=== PATIENT | male | born 1975 | race Caucasian/White ===

== ENCOUNTER 2018-08-17 07:35 | Day surgery (SDC) | payer OTHER ==
[~2018-08-17] VITALS: Ht 177.8 cm; Wt 92.0 kg
[~2018-08-17 07:35] MED LIST: BUPIVACAINE/PF 0.5% ONE; EPINEPHRINE 1 MG/ML, 1ML ONE; IBUP-1223 PO; LIDOCAINE 1%, 20ML ONE; MULT-658 PO
[2018-08-17 07:50] VITALS: BP 119/79
[2018-08-17] MEDS ORDERED: LACTATED RINGERS 1,000 ML IV SCH (07:55)
[2018-08-17] MEDS ORDERED: FENTANYL PF 100 MCG/2ML ONE (08:13)
[2018-08-17] MEDS ORDERED: MIDAZOLAM 1 MG/ML, 2ML ONE (08:13)
[2018-08-17] MEDS ORDERED: ACETAMINOPHEN 500 MG TABLET PO ONE (08:30)
[2018-08-17] MEDS ORDERED: GABAPENTIN 300 MG CAPSULE PO ONE (08:30)
[2018-08-17] MEDS ORDERED: ONDANSETRON 2MG/ML, 2ML ONE (08:38)
[2018-08-17] MEDS ORDERED: CEFAZOLIN 1,000 MG ONE (08:38)
[2018-08-17] MEDS ORDERED: PROPOFOL 10 MG/ML, 20ML ONE (08:38)
[2018-08-17] MEDS ORDERED: DEXAMETHASONE 4 MG/ML, 1ML ONE (08:38)
[2018-08-17] MEDS ORDERED: MULTIVITAMIN 1 TABLET PO SCH (09:00)
[2018-08-17] MEDS ORDERED: IBUPROFEN 800 MG TABLET PO PRN (09:00)
[2018-08-17] MEDS ORDERED: KETOROLAC 30 MG/1 ML ONE (09:24)
[2018-08-17] MEDS ORDERED: MEPERIDINE/PF 25MG/0.5ML IVPush PRN (10:00)
[2018-08-17] MEDS ORDERED: OXYcodone 5 MG/5 ML ORAL.SOL UDC PO PRN (10:00)
[2018-08-17] MEDS ORDERED: ALBUTEROL/IPRATROPIUM 2.5MG/0.5MG, 3 ML NPPB PRN (10:00)
[2018-08-17] MEDS ORDERED: ONDANSETRON 2MG/ML, 2ML IV PRN (10:00)
[2018-08-17] MEDS ORDERED: MIDAZOLAM 1 MG/ML, 2ML IV PRN (10:00)
[2018-08-17] MEDS ORDERED: PROMETHAZINE 25 MG/ML, 1ML IV PRN (10:00)
[2018-08-17] MEDS ORDERED: FENTANYL PF 100 MCG/2ML IV PRN (10:00)
[2018-08-17] MEDS ORDERED: OXYcodone 5 MG/5 ML ORAL.SOL UDC ONE (10:27)
== END 2018-08-17 11:50 | disposition home or self-care (01) ==
LOC: OUT 07:35
PROVIDERS: ATTEND Orthopaedic Surgery
DX: S83.231A Complex tear of medial meniscus, current injury, right knee, initial encounter (principal); S83.271A Complex tear of lateral meniscus, current injury, right knee, initial encounter; S83.511A Sprain of anterior cruciate ligament of right knee, initial encounter; M94.261 Chondromalacia, right knee; Z72.89 Other problems related to lifestyle; X58.XXXA Exposure to other specified factors, initial encounter; Y93.89 Activity, other specified; Y92.89 Other specified places as the place of occurrence of the external cause; Y99.8 Other external cause status
CPT/HCPCS: 29880; J0171; J0690; J1100; J1885; J2250; J2405; J2704; J3010

== ENCOUNTER 2020-01-06 12:56 | Emergency (ER) | payer OTHER ==
[~2020-01-06] VITALS: Ht 177.8 cm; Wt 88.5 kg
[~2020-01-06 12:56] MED LIST changes: -BUPIVACAINE/PF 0.5% ONE; -EPINEPHRINE 1 MG/ML, 1ML ONE; -LIDOCAINE 1%, 20ML ONE
[2020-01-06 13:00] VITALS: BP 125/101
--- NOTE | 2020-01-06 13:27 | NUR ---
ICE PACK PROVIDED, CALL LIGHT WITHIN REACH.
== END 2020-01-06 14:08 | disposition home or self-care (01) ==
LOC: ED 13:10
DX: S86.012A Strain of left Achilles tendon, initial encounter (principal); X58.XXXA Exposure to other specified factors, initial encounter; Y93.89 Activity, other specified; Y92.89 Other specified places as the place of occurrence of the external cause; Y99.8 Other external cause status
CPT/HCPCS: 99283

== ENCOUNTER 2020-01-09 05:58 | Day surgery (SDC) | payer OTHER ==
[~2020-01-09] VITALS: Ht 177.8 cm; Wt 92.1 kg
[2020-01-09 06:23] VITALS: BP 128/82
[2020-01-09] MEDS ORDERED: FENTANYL PF 250 MCG/5ML ONE (06:31)
[2020-01-09] MEDS ORDERED: MIDAZOLAM 1 MG/ML, 2ML ONE (06:31)
[2020-01-09] MEDS ORDERED: NO MEDICATIONS (06:36)
[2020-01-09] MEDS ORDERED: PROPOFOL 10 MG/ML, 20ML ONE (06:49)
[2020-01-09] MEDS ORDERED: KETOROLAC 30 MG/1 ML ONE (06:49)
[2020-01-09] MEDS ORDERED: ROCURONIUM 10 MG/ML,10ML ONE (06:49)
[2020-01-09] MEDS ORDERED: ONDANSETRON 2MG/ML, 2ML ONE (06:49)
[2020-01-09] MEDS ORDERED: CEFAZOLIN 1,000 MG ONE (06:49)
[2020-01-09] MEDS ORDERED: DEXAMETHASONE 4 MG/ML, 1ML ONE (06:49)
[2020-01-09] MEDS ORDERED: SUGAMMADEX 200 MG/2 ML IVPush ONE (06:49)
[2020-01-09] MEDS ORDERED: MEPERIDINE/PF 25MG/0.5ML IVPush PRN (07:30)
[2020-01-09] MEDS ORDERED: PROMETHAZINE 25 MG/ML, 1ML IVPush PRN (07:30)
[2020-01-09] MEDS ORDERED: OXYcodone 5 MG/5 ML ORAL.SOL UDC PO PRN (07:30)
[2020-01-09] MEDS ORDERED: DIAZEPAM 5 MG/ML, 2ML IVPush PRN (07:30)
[2020-01-09] MEDS ORDERED: ONDANSETRON 2MG/ML, 2ML IVPush PRN (07:30)
[2020-01-09] MEDS ORDERED: HYDROmorphone 1 MG/ML, 1ML INJ IVPush PRN (07:30)
[2020-01-09] MEDS ORDERED: ACETAMINOPHEN 325 MG TABLET PO PRN (07:30)
[2020-01-09] MEDS ORDERED: FENTANYL PF 100 MCG/2ML IV PRN (07:30)
== END 2020-01-09 10:30 | disposition home or self-care (01) ==
LOC: OUT 05:58
PROVIDERS: ATTEND Orthopaedic Surgery
DX: S86.012A Strain of left Achilles tendon, initial encounter (principal); G89.18 Other acute postprocedural pain; Z79.891 Long term (current) use of opiate analgesic; X50.1XXA Overexertion from prolonged static or awkward postures, initial encounter; Y93.89 Activity, other specified; Y92.89 Other specified places as the place of occurrence of the external cause; Y99.8 Other external cause status
CPT/HCPCS: 27650; 64445; 87635; J0690; J1100; J1885; J2250; J2405; J2704; J3010